=== PATIENT | female | born 1970 | race Hispanic/Latino ===

== ENCOUNTER 2017-05-26 23:07 | Emergency (ER) | payer MEDICARE ==
[2017-05-26 23:35] LABS: BASOPHILS % (AUTO) 0.7 % (0.0-5.0); EOSINOPHILS % (AUTO) 1.7 % (0.0-8.0); HEMATOCRIT 34.7 % (36-48); LYMPHOCYTES % (AUTO) 41.8 % (21.0-51.0); MEAN CORPUSCULAR HEMOGLOBIN 29.3 pg (27.0-33.0); MEAN CORPUSCULAR HGB CONC 33.8 g/dL (32.0-36.0); MEAN CORPUSCULAR VOLUME 86.6 fL (79-99); MONOCYTES % (AUTO) 5.1 % (3.0-13.0); NEUTROPHILS % (AUTO) 50.7 % (40.0-77.0); PLATELET COUNT (AUTO) 248 K/uL (130-400); RED CELL DISTRIBUTION WIDTH 13.4 % (11.0-15.5); WHITE BLOOD COUNT (AUTO) 9.3 K/uL (4.8-10.8)
[2017-05-26 23:42] LABS: CREATININE 0.9 mg/dL (0.5-1.5); POTASSIUM 3.1 mmol/L (3.5-5.1)
[2017-05-26 23:46] LABS: ALBUMIN 3.1 g/dL (3.5-5.0); BILIRUBIN,TOTAL 0.2 mg/dL (0.2-1.0); TOTAL PROTEIN, SERUM 7.2 g/dL (6.0-8.3)
[2017-05-27] MEDS ORDERED: ONDANSETRON HCL MDV 20ML 2 MG/ML VIAL ONE (00:15)
[2017-05-27] MEDS ORDERED: DiphenhydrAMINE HCL 50 MG/ML VIAL ONE (00:17)
[2017-05-27] MEDS ORDERED: METOCLOPRAMIDE 10 MG TABLET ONE (00:22)
[2017-06-20] MEDS ORDERED: HYDR200T82 PO (10:19)
[2017-06-20] MEDS ORDERED: ALPR0.255 PO (10:44)
[2017-06-20] MEDS ORDERED: MECL-111 PO (10:44)
[2017-06-20] MEDS ORDERED: BUTA1CAP53 PO (10:44)
[2017-06-20] MEDS ORDERED: OMEP40CA37 PO (10:44)
[2017-06-20] MEDS ORDERED: LURA20TA PO (10:44)
[2017-06-20] MEDS ORDERED: TOPI25TA48 PO (10:44)
[2017-06-20] MEDS ORDERED: PRED50TA2 PO (10:44)
[2017-06-20] MEDS ORDERED: FLUO20CA30 PO (10:44)
[2017-06-20] MEDS ORDERED: ONDA4TAB9 PO (10:44)
== END 2017-05-27 04:25 | disposition home or self-care (01) ==
LOC: EDH 23:07
DX: R07.89 Other chest pain (principal); R51 Headache; R42 Dizziness and giddiness; R09.81 Nasal congestion; R06.02 Shortness of breath; M32.9 Systemic lupus erythematosus, unspecified
CPT/HCPCS: 36415; 70450; 80053; 81025; 84484; 85025; 87804 ×2; 93005 ×2; 96374; 96375; 99291; J1200

== ENCOUNTER 2017-06-21 09:23 | Day surgery (SDC) | payer MEDICARE ==
[~2017-06-21] VITALS: Ht 160 cm; Wt 86.8 kg
[~2017-06-21 09:23] MED LIST: ALPR0.255 PO; BUTA1CAP53 PO; FLUO20CA30 PO; HYDR200T82 PO; LURA20TA PO; MECL-111 PO; OMEP40CA37 PO; ONDA4TAB9 PO; PRED50TA2 PO; SODIUM CHLORIDE 0.9% 1000ML 1,000 ML IV ONE; TOPI25TA48 PO
[2017-06-21] MEDS ORDERED: DIPH25 PO (10:59)
[2017-06-21 11:10] VITALS: BP 117/64
[2017-06-21 11:53] VITALS: BP 108/62
[2017-06-21 11:55] VITALS: BP 108/62
== END 2017-06-21 12:35 | disposition home or self-care (01) ==
LOC: ENDO 09:23 → DAH 09:23 → ENDO 12:35
PROVIDERS: ATTEND Internal Medicine
DX: B37.81 Candidal esophagitis (principal); K29.50 Unspecified chronic gastritis without bleeding; L53.8 Other specified erythematous conditions; Z79.899 Other long term (current) drug therapy; F41.8 Other specified anxiety disorders; Z90.710 Acquired absence of both cervix and uterus
CPT/HCPCS: 43239; 87101; 87106; 87206; 88305; 88312; A4606; J7030